=== PATIENT | female | born 1955 | race Asian ===

== ENCOUNTER → 2024-09-02 17:23 | Outpatient (CLI) | payer MEDICARE, SELFPAY ==
--- NOTE | 2024-09-02 17:26 | EKG_ITS ---
[address] [address] Test Date: 2024-09-02 Pat Name: Max Beck Department: [facility] Room: Gender: Female [employer] Shop: TIEN : 1955 Requested By: Order Number: [id number] Reading MD: Castro Aponte MD Measurements Intervals [place] Rate: 77 P: 40 NM: 156 QRS: 4 QRSD: 66 T: 17 QT: 394 QTc: 445 Interpretive Statements Normal sinus rhythm Electronically Signed On 09-03-2024 7:31:11 PDT by Castro Aponte MD
[2024-09-02 17:47] LABS: Add Manual Diff / Slide Review NO; Hematocrit 42.8 % (36-46); Hemoglobin 14.3 g/dL (12.0-16.0); Lymphocytes Absolute Auto 2000 /uL (1100-4500); Mean Corpuscular HGB Conc 33.5 % (30-36); Mean Corpuscular Hemoglobin 29.9 PG (26-34); Mean Corpuscular Volume 89.1 fL (80-100); Platelet Count 337 X10^3/uL (150-400)
[2024-09-02 18:40] LABS: Albumin 4.5 g/dL (3.5-5.0); Blood Urea Nitrogen 16 mg/dL (7-17); Calcium 9.7 mg/dL (8.4-10.2); Carbon Dioxide 26 mmol/L (22-32); Chloride 105 mmol/L (98-107); Estimated Glomerular Filt Rate > 60 mL/min (>60); Glucose 103 mg/dL (70-99); HEMOLYSIS < 15 (0-50); Potassium 4.8 mmol/L (3.4-5.1); Sodium 137 mmol/L (137-145)
[2024-09-02 18:43] LABS: Vitamin D 25 Hydroxy (D3) 35.0 ng/mL (30.0-100.0)
[2024-09-02 18:49] LABS: Prealbumin 29.3 mg/dL (17.6-36.0)
[2024-09-02 22:10] LABS: Hemoglobin A1C% w Est Avg Glu 5.5 % (4.0-6.0)
== END ==
PROVIDERS: PCP Internal Medicine; Referring Provider Orthopaedic Surgery Adult Reconstructive Orthopaedic Surgery; Visit Provider Orthopaedic Surgery Adult Reconstructive Orthopaedic Surgery
DX: Z01.818 Encounter for other preprocedural examination (principal); Z01.812 Encounter for preprocedural laboratory examination
CPT/HCPCS: 36415; 80048; 82040; 82306; 83036; 84134; 85025; 93005